=== PATIENT | female | born 1955 | race Caucasian/White ===

== ENCOUNTER 2022-05-15 12:39 | Inpatient (IN) ==
[2022-05-15] MEDS ORDERED: LORazepam 2 MG/1 ML VIAL ONE (13:31)
[2022-05-15] MEDS ORDERED: FOSPHENYTOIN 1,000 MG.PE in SODIUM CHLORIDE 0.9% 250 ML IV STA (13:32)
[2022-05-15] MEDS ORDERED: LORazepam 2 MG/1 ML VIAL IV STA ×2 (13:32→15:42)
[2022-05-15] MEDS ORDERED: levETIRAcetam 500 MG/5 ML VIAL IV ONE (13:33)
[2022-05-15 13:45] LABS: Basophils % 0.1 % (0.0-0.8); Eosinophils % 0.3 % (0.00-10.9); Hematocrit 43.9 VOL% (35.7-47.0); Hemoglobin 14.3 GM/DL (12.0-16.0); Immature Granulocytes % 5.6 %; Immature Granulocytes Absolute 0.69 #; Lymphocytes # 3.3 10*3/uL (1.4-4.0); Lymphocytes % 27.1 % (21.3-54.2); Mean Corpuscular HGB Conc 32.6 GM/DL (32-36); Mean Corpuscular Volume 100.9 FL (87-102); Mean Platelet Volume 9.5 FL (9.6-12.0); Monocytes # 0.7 10*3/uL (0.11-0.8); Monocytes % 5.5 % (1.7-12.7); Neutrophils % 61.4 % (38.7-73.9); Platelet Count 255 T/CUMM (130-400); Red Blood Count 4.35 MC/CUMM (3.8-5.5); Red Cell Distribution Width 15.1 % (9.3-17.3); White Blood Count 12.29 T/CUMM (4-12)
[2022-05-15 14:08] LABS: Alanine Aminotransferase 137 U/L (13-56); Albumin 3.1 G/DL (3.4-5.0); Alkaline Phosphatase 89 U/L (45-117); Aspartate Amino Transferase 103 U/L (0-37); Blood Urea Nitrogen 13 MG/DL (7-18); Calcium 8.9 MG/DL (8.5-10.1); Carbon Dioxide 22 MMOL/L (21-32); Chloride 101 MMOL/L (98-107); Glucose 218 MG/DL (74-106); Osmolality,Calculated 274.2 MOS/KG (273-304); Potassium 4.2 MMOL/L (3.5-5.1); Sodium 134 MMOL/L (136-145); Total Protein 7.3 G/DL (6.4-8.2)
[2022-05-15 14:11] LABS: Atypical Lymphocytes Few; Band Neutrophils 8 % (0-10); Lymphocytes 24 % (20-55); Metamyelocytes 2 %; Total Cells Counted 100
[2022-05-15 14:12] LABS: Platelet Estimate Normal
[2022-05-15] MEDS ORDERED: ONDANSETRON 4 MG/2 ML VIAL IV PRN (15:38)
[2022-05-15] MEDS: MORPHINE 2 MG/1 ML SYRINGE IV PRN ×2 (18:20→22:00)
[2022-05-16] MEDS: LORazepam 2 MG/1 ML VIAL IV PRN ×2 (00:15→02:22)
[2022-05-16] MEDS: MORPHINE 2 MG/1 ML SYRINGE IV PRN ×2 (00:17→02:22)
[2022-05-16 05:08] VITALS: BP 0/0
== END 2022-05-16 02:30 | disposition expired | DRG 951 ==
LOC: N.ED 12:39 → N.EDINP 15:38 → N.TELES 05-16 00:12
PROVIDERS: ADMIT Family Medicine; ATTEND Family Medicine